=== PATIENT | female | born 1950 | race Caucasian/White ===

== ENCOUNTER → 2017-02-08 | Outpatient (CLI) | payer BC, SELFPAY ==
--- NOTE | 2017-02-09 09:07 | MRI ---
EXAM DESCRIPTION: MRI pelvis without and with contrast CLINICAL HISTORY: Disorder of the uterus. Mass lesion seen on outside sonogram COMPARISON: None. TECHNIQUE: Multiplanar, multisequence MR images of the pelvis without and with gadolinium contrast FINDINGS: Myometrial mass lesion mid left uterus 2.1 x 2.4 x 1.9 cm with imaging characteristics consistent with fibroid. No other uterine mass lesion. Endometrium is normal. Normal appearance of the cervix and vagina No adnexal mass lesion. No other evidence of pelvic mass lesion, adenopathy or free fluid. Visualized lower right kidney. Left kidney not seen. No ectopic left kidney included in the [id number]. No mass lesion seen along the course of the lumbosacral plexus or proximal sciatic nerves Disc and facet degeneration seen on the edge of the [id number] L4-5 No mass lesion or inflammatory process identified in the small and large intestine included in the [id number] No focal marrow lesion IMPRESSION: Left uterine myometrial fibroid 2.4 cm in greatest dimension Electronically signed by: Wiley Underwood MD 02/09/2017 9:06 AM CDT
== END | disposition home or self-care (01) ==
LOC: MRI 08:27
PROVIDERS: ATTEND Obstetrics & Gynecology
DX: N85.9 Noninflammatory disorder of uterus, unspecified (principal)

== ENCOUNTER → 2017-03-07 | Outpatient (CLI) | payer BC | END | disposition home or self-care (01) | LOC: GMAL 10:31 | PROVIDERS: ATTEND Family Medicine | DX: Z00.00 Encounter for general adult medical examination without abnormal findings (principal) ==

== ENCOUNTER 2017-10-16 07:00 | Day surgery (SDC) | payer BC ==
[~2017-10-16 07:00] MED LIST: PROPARACAINE 0.5% OPHTH SOL 15 ML BTTL ONE; TROP 1%/CYCLOPEN 1%/PHENYL 2% DROPS ONE
[2017-10-16] MEDS ORDERED: MIDAZOLAM INJ 2 MG/2 ML VIAL ONE (07:03)
[2017-10-16] MEDS: TOBRAMYCIN SULF 0.3 % OPHT SOL 1 DROP LEFT_EYE ONE ×2 (09:30→10:10)
[2017-10-16] MEDS ORDERED: PROPARACAINE 0.5% OPHTH SOL 15 ML BTTL LEFT_EYE ONE (10:01)
[2017-10-16] MEDS ORDERED: LIDOCAINE 1% PF 2 ML AMP INJ ONE (10:09)
[2017-10-16] MEDS ORDERED: DEXAMETHASONE 0.1% OPHTH SOL 1 DROP LEFT_EYE ONE ×4 (10:10→10:16)
[2017-10-16] MEDS ORDERED: BRIMONIDINE 0.2% OPHTH DROPS LEFT_EYE ONE ×4 (10:10→10:16)
[2017-10-16] MEDS ORDERED: TOBRAMYCIN SULF 0.3 % OPHT SOL 1 DROP LEFT_EYE ONE ×3 (10:14→10:16)
[2017-10-16 11:08] VITALS: BP 142/72; TEMP 97.8; O2SAT 98
== END 2017-10-16 10:50 | disposition home or self-care (01) ==
LOC: AMB 07:00
PROVIDERS: ATTEND Ophthalmology
DX: H25.12 Age-related nuclear cataract, left eye (principal); J44.9 Chronic obstructive pulmonary disease, unspecified; F17.210 Nicotine dependence, cigarettes, uncomplicated; Z88.0 Allergy status to penicillin; Z79.899 Other long term (current) drug therapy
CPT/HCPCS: 00142; 66984; J2250

== ENCOUNTER 2017-10-30 05:44 | Day surgery (SDC) | payer BC ==
[2017-10-30] MEDS ORDERED: TROP 1%/CYCLOPEN 1%/PHENYL 2% DROPS ONE (06:03)
[2017-10-30] MEDS ORDERED: MIDAZOLAM INJ 2 MG/2 ML VIAL ONE (06:53)
[2017-10-30] MEDS: PROPARACAINE 0.5% OPHTH SOL 15 ML BTTL ONE ×3 (11:12→11:35)
[2017-10-30] MEDS ORDERED: TROP 1%/CYCLOPEN 1%/PHENYL 2% DROPS OPHTH ONE (11:12)
[2017-10-30] MEDS: TOBRAMYCIN-DEXAMETH OPHTH SOL 1 DROP RIGHT_EYE ONE ×2 (11:12→11:58)
[2017-10-30] MEDS ORDERED: LIDOCAINE 1% PF 2 ML AMP INJ ONE (11:43)
[2017-10-30] MEDS ORDERED: DEXAMETHASONE 0.1% OPHTH SOL 1 DROP RIGHT_EYE ONE ×2 (11:47→11:58)
[2017-10-30] MEDS ORDERED: TOBRAMYCIN-DEXAMETH OPHTH SOL 1 DROP RIGHT_EYE ONE (11:47)
[2017-10-30] MEDS ORDERED: BRIMONIDINE 0.2% OPHTH DROPS RIGHT_EYE ONE ×2 (11:48→11:58)
[2017-10-30 13:52] VITALS: BP 154/80; TEMP 98.5; O2SAT 98
== END 2017-10-30 12:25 | disposition home or self-care (01) ==
LOC: AMB 05:44
PROVIDERS: ATTEND Ophthalmology
DX: H25.11 Age-related nuclear cataract, right eye (principal); J44.9 Chronic obstructive pulmonary disease, unspecified; F17.210 Nicotine dependence, cigarettes, uncomplicated
CPT/HCPCS: 00142; 66984; J2250

== ENCOUNTER → 2017-11-24 | Outpatient (CLI) | payer BC ==
--- NOTE | 2017-11-24 20:31 | MRI ---
EXAM DESCRIPTION: Lumbar Spine w/o Contrast MRI. CLINICAL HISTORY: RADICULOPATHY COMPARISON: MR thoracic spine on the same visit. TECHNIQUE: Multiplanar, multiple standard sequences, non contrast MRI, lumbar spine. FINDINGS: L5-S1: This disc is seen on the mid disc space axial T2 sequence 501, image 3. This is determined by counting cervical and thoracic vertebral bodies on the MRI thoracic spine scan. The L5 vertebral body is transitional. Normal signal in the disc and normal disc space. Minimal ligament hypertrophy bilaterally with arthrosis in the left facet. Moderate right foraminal narrowing and mild left foraminal narrowing. The canal at this level is sacralized and narrowed. Bilateral narrowing of the subarticular recesses. L4-5: Significant disc space loss and loss of signal in the disc space. Anterior disc bulge and endplate ridging with anterior Modic type II endplate reactive changes, which also involve the right lateral disc space and the right foramen, which is borderline stenotic. Schmorl's nodes in the endplates. Bilateral facet arthrosis with borderline stenosis of the left foramen. There may be a small synovial cyst abutting the left facet. Hypertrophy of the posterior flavum ligaments with lateral mass effect on the thecal sac and mild canal stenosis. Minimal narrowing of the bilateral subarticular recesses. L3-4: Grade 1 anterolisthesis 3 mm. Disc desiccation and disc space loss. Anterior bulging and endplate ridging. Right posterior disc protrusion 7 mm into the base of the foramen and superior extrusion which is abutting the exiting right L3 nerve, with right foraminal stenosis. Bilateral posterior flavum ligament hypertrophy with bilateral facet arthrosis. Mild central canal stenosis and moderate left foraminal narrowing. L2-3: Minimal disc desiccation with disc space preserved and minimal anterior bulging. No posterior bulging. Minimal facet arthrosis and labral ligament hypertrophy with mild canal narrowing. L1-2: Minimal disc desiccation. Disc space maintained and no posterior bulging. Left facet arthrosis. Canal and bilateral foramina are patent. T12-L1: Minimal disc desiccation and anterior disc space bulging with endplate ridging. No posterior bulging. Posterior elements unremarkable. Canal and foramina are patent. Conus terminates at T12. No scoliosis. Paravertebral soft tissues unremarkable.. Normal marrow signal in the remaining vertebral bodies and the posterior elements. Vertebral bodies are not compressed at any level. IMPRESSION: 1. L5 vertebra is transitional and partially sacralized. Designation of the L5-S1 disc space is confirmed by comparing to thoracic MRI scan also performed on this visit. Please see above discussion. 2. Multiple levels of disc desiccation and facet arthrosis and ligament hypertrophy, canal and foraminal encroachment and spondylosis, more severe in the lower disc space levels. 3. Grade 1 anterolisthesis L3-4. Right posterior disc herniation into the foramen abutting the exiting right L3 nerve with foraminal stenosis. Mild central canal stenosis. 4. moderate spondylosis in the anterior and right lateral aspect at L4-5 with disc osteophyte complex encroaching on the right foramen and abutting the right L4 nerve. Bilateral foraminal stenosis. Correlate for bilateral L4 radiculopathy. Hypertrophy and arthrosis and posterior elements with mild canal stenosis. Electronically signed by: Addison Martinez MD 11/24/2017 8:30 PM CDT Workstation: [id number]
--- NOTE | 2017-11-25 12:24 | MRI ---
EXAM DESCRIPTION: Thoracic Spine w/o Contrast: Magnetic Resonance Imaging. CLINICAL HISTORY: PAIN IN THORACIC SPINE COMPARISON: MRI scan lumbar spine on the same visit. TECHNIQUE: Multiplanar, multiple standard sequences, non contrast MRI, thoracic spine. Axial T1 and T2 images from T1 to T3 and T6-T7. FINDINGS: Normal signal in the cord with no compression or cord edema. Conus terminates at T12. Multiple levels of disc desiccation with disc space narrowing at T5-6, T6-7, T7-8, T8-9, and T2-3. Minimal posterior bulge of the T6-7 disc but not touching the cord or encroaching on nerve roots. Minimal endplate changes left lateral and posterior aspect narrowing the left foramen. Schmorl's nodes in the endplates at T10-11. No significant disc bulging or herniation posteriorly at any level. Anterior disc bulging and osteophytes more to the right of midline than the left. Remaining discs with normal signal and no posterior bulging. Disc spaces are preserved. Canal and foramina are patent. No scoliosis. Facet joints are unremarkable. Paravertebral soft tissues are unremarkable. Normal marrow signal in the vertebral bodies and the posterior elements. Vertebral bodies are not compressed at any level. IMPRESSION: 1. Posterior midline bulge T6-7 disc with desiccation and minimal disc space loss. Posterior lateral endplate spur narrowing the base of the foramen and the left posterior canal. Inferior T6 Schmorl's node. 2. Desiccation and disc and narrowing of disc space also T2-T3, T5-T6, T7-T8, and T8-9. Schmorl's nodes endplates T10-T11. Anterior disc bulging and spurs at these levels and other levels. 3. No cord compression or cord edema. Conus terminates at T12. No compression type vertebral body fracture at any level. Electronically signed by: Addison Martinez MD 11/25/2017 12:22 PM CDT Workstation: [id number]
== END ==
LOC: MRI 10:00
PROVIDERS: ATTEND Family Medicine
DX: M51.16 Intervertebral disc disorders with radiculopathy, lumbar region (principal); M47.896 Other spondylosis, lumbar region

== ENCOUNTER → 2019-04-09 | Outpatient (CLI) | payer BC | LOC: GMAL 10:43 | PROVIDERS: ATTEND Family Medicine | DX: Z00.01 Encounter for general adult medical examination with abnormal findings (principal) ==

== ENCOUNTER → 2020-04-27 | Outpatient (CLI) | payer BC | LOC: GMAL 14:33 | PROVIDERS: ATTEND Family Medicine | DX: D51.3 Other dietary vitamin B12 deficiency anemia (principal); E55.9 Vitamin D deficiency, unspecified; R53.83 Other fatigue; I10 Essential (primary) hypertension; E78.49 Other hyperlipidemia ==